=== PATIENT | female | born 1975 | race Caucasian/White ===

== ENCOUNTER → 2021-03-05 15:04 | Outpatient (CLI) | payer BC, SELFPAY ==
--- NOTE | 2021-03-05 15:12 | US_ITS ---
PROCEDURE: US THYROID CLINICAL INDICATION: THYROID NODULE COMPARISON: No exams were available for comparison FINDINGS: Right lobe: 3.8 x 1.2 x 1 cm Left lobe: 3.4 x 1 x 1 cm Isthmus: 2 mm Additional findings: Thyroid echogenicity and echotexture is normal. There is a tiny 2 mm cyst in the mid right thyroid lobe. There is a 4 mm complex nodule in the mid left thyroid lobe and a 5 millimeter minimally complex nodule in the left mid thyroid lobe. Repeat thyroid ultrasound in 6 months recommended for close follow-up. No other abnormality. IMPRESSION: A few small subcentimeter complex nodules in the left thyroid lobe and tiny subcentimeter cyst in the right thyroid lobe. Repeat thyroid ultrasound in 6 months recommended for close follow-up. Dictated by: Mo See MD 03/06/2021 09:27 Mo See MD in [place] 03/06/2021 09:27
== END ==
PROVIDERS: PCP Nurse Practitioner Family; Visit Provider Nurse Practitioner Family
DX: E04.1 Nontoxic single thyroid nodule (principal)
CPT/HCPCS: 76536

== ENCOUNTER → 2021-11-06 13:51 | Outpatient (CLI) | payer BC, SELFPAY ==
--- NOTE | 2021-11-06 13:56 | US_ITS ---
FINAL REPORT CLINICAL HISTORY: THYROID NODULE COMPARISON: March 05, 2021 FINDINGS: THYROID ULTRASOUND The right lobe of the thyroid measures 3.5 x 1.2 x 0.9 cm. The left lobe of the thyroid measures 3.3 x 1.1 x 1.0 cm. The parenchyma shows normal echogenicity. There is a 4 x 4 x 3 mm nodule in the right lobe of the thyroid that is solid and hypoechoic consistent with a TI-RADS 4. In the left lobe of the thyroid is a 5 x 4 x 2 mm solid hypoechoic nodule consistent with a TI-RADS 4. Also in the left lobe is a 6 x 6 x 2 mm solid hypoechoic TI-RADS 4 nodule. There is visually no significant change from the prior exam. IMPRESSION: Persistent small nodules bilaterally. Consider additional follow-up in 12 months. Reviewed, Interpreted and Dictated by Jett Paul III, MD Transcribed by Pillo Eckert Authenticated by Jett Paul III, MD on 11/06/2021 03:39:28 PM [facility]
== END ==
PROVIDERS: PCP Nurse Practitioner Family; Visit Provider Nurse Practitioner Family
DX: E04.1 Nontoxic single thyroid nodule (principal)
CPT/HCPCS: 76536

== ENCOUNTER → 2022-06-05 13:21 | Outpatient (CLI) | payer BC, SELFPAY ==
--- NOTE | 2022-06-05 13:21 | MM_ITS ---
PROCEDURE INFORMATION: Exam: MG Bilateral Screening 3D Mammography Exam date and time: 06/05/2022 1:20 PM Age: 47 years old Clinical indication: Screening examination. Her mother had breast cancer at age 67 and maternal aunts had breast cancer. TECHNIQUE: Imaging protocol: Bilateral Screening tomosynthesis and 2D mammography including computer-aided detection (CAD) when performed. COMPARISON: No relevant prior studies available. If prior mammograms are provided, I am happy to add an addendum. FINDINGS: MAMMOGRAPHY: Breast composition: There are scattered areas of fibroglandular density. Mass: None. Architectural distortion: None. Calcifications: No suspicious calcifications. Asymmetric density: None. Skin thickening: None. Axillary adenopathy: None. IMPRESSION: No mammographic evidence of malignancy. Annual screening is recommended unless otherwise clinically indicated. ASSESSMENT: BI-RADS Category 1: Negative
== END ==
PROVIDERS: PCP Nurse Practitioner Family; Visit Provider Obstetrics & Gynecology
DX: Z12.31 Encounter for screening mammogram for malignant neoplasm of breast (principal)
CPT/HCPCS: 77063; 77067

== ENCOUNTER → 2023-08-12 07:58 | Outpatient (CLI) | payer BC, SELFPAY ==
--- NOTE | 2023-08-12 07:58 | MM_ITS ---
PROCEDURE INFORMATION: Exam: MG Bilateral Screening 3D Mammography Exam date and time: 08/12/2023 7:53 AM Age: 48 years old Clinical indication: Screening examination TECHNIQUE: Imaging protocol: Bilateral Screening tomosynthesis and 2D mammography including computer-aided detection (CAD) when performed. COMPARISON: MG MM DIG SCREENING MAMM BI W/CAD 06/05/2022 1:21 PM FINDINGS: MAMMOGRAPHY: Breast composition: There are scattered areas of fibroglandular density. Mass: None. Architectural distortion: None. Calcifications: No suspicious calcifications. Asymmetric density: None. Skin thickening: None. Axillary adenopathy: None. IMPRESSION: No mammographic evidence of malignancy. Annual screening is recommended unless otherwise clinically indicated. ASSESSMENT: BI-RADS Category 1: Negative
== END ==
PROVIDERS: PCP Nurse Practitioner Family; Visit Provider Obstetrics & Gynecology
DX: Z12.31 Encounter for screening mammogram for malignant neoplasm of breast (principal)
CPT/HCPCS: 77063; 77067

== ENCOUNTER 2023-12-30 10:21 | Outpatient (CLI) | payer BC, SELFPAY ==
--- NOTE | 2023-12-30 10:26 | US_ITS ---
FINAL REPORT CLINICAL HISTORY: UPPER ABD PAIN,N/D COMPARISON: None FINDINGS: Sonographic images of the right upper quadrant were obtained. The pancreas is partially obscured.The liver has an unremarkable appearance. There are polyps versus tumefactive sludge present in the gallbladder. There is no evidence of biliary ductal dilatation.The common duct measures 5 mm. Limited images of the right kidney are unremarkable. IMPRESSION: Polyps versus tumefactive sludge present in the gallbladder, follow-up may be helpful. No evidence of biliary ductal dilatation. Reviewed, Interpreted and Dictated by Jett Paul III, MD Transcribed by Perla Macedo Authenticated and [facility]
== END 2023-12-30 23:59 | disposition home or self-care (01) ==
LOC: RAD 10:22
PROVIDERS: PCP Nurse Practitioner; Visit Provider Nurse Practitioner
DX: R10.10 Upper abdominal pain, unspecified (principal); R11.0 Nausea; R19.7 Diarrhea, unspecified
CPT/HCPCS: 76705

== ENCOUNTER 2024-11-14 08:00 | Outpatient (CLI) | payer BC, SELFPAY ==
--- NOTE | 2024-11-14 08:05 | MM_ITS ---
PROCEDURE INFORMATION: Exam: MG Bilateral Screening 3D Mammography Exam date and time: 11/14/2024 8:12 AM Age: 49 years old Clinical indication: Screening examination TECHNIQUE: Imaging protocol: Bilateral Screening tomosynthesis and 2D mammography including computer-aided detection (CAD) when performed. COMPARISON: 1. MG MM DIG SCREENING MAMM BI W/CAD 08/12/2023 7:53 AM 2. MG MM DIG SCREENING MAMM BI W/CAD 06/05/2022 1:21 PM FINDINGS: MAMMOGRAPHY: Breast composition: There are scattered areas of fibroglandular density. Mass: None. Architectural distortion: None. Calcifications: No suspicious calcifications. Asymmetric density: None. Skin thickening: None. Axillary adenopathy: None. IMPRESSION: No mammographic evidence of malignancy. Annual screening is recommended unless otherwise clinically indicated. ASSESSMENT: BI-RADS Category 1: Negative.
== END 2024-11-14 23:59 | disposition home or self-care (01) ==
LOC: RAD 08:02
PROVIDERS: PCP Nurse Practitioner; Visit Provider Nurse Practitioner
DX: Z12.31 Encounter for screening mammogram for malignant neoplasm of breast (principal)
CPT/HCPCS: 77063; 77067

== ENCOUNTER 2025-03-06 06:59 | Day surgery (SDC) | payer BC, SELFPAY ==
[2025-03-03 10:02] VITALS: BMI 31.1
[2025-03-06 07:40] VITALS: BP 113/63; PULSE 66; RESP 18; TEMP 36.1; O2SAT 99; BMI 31.1
[2025-03-06] MEDS: LACTATED RINGERS 1000ML 1,000 ML 50 ML IV (07:50)
--- NOTE | 2025-03-06 07:59 | EXP.ANES.CKL ---
[facility] Disclaimer: The information contained in this section may have been updated after the patient was seen, as this information can be updated by other users. Medical History Postmenopausal atrophic vaginitis Menopausal syndrome (hot flashes) Family history of breast cancer in first degree relative Surgical History Hx of tubal ligation Family History Mother Cancer Breast Cancer Social History Smoking Status: Never smoker alcohol intake: never substance use type: denies use current occupational status: employed Travel in the last 8 weeks?: None [facility] Anesthesia Checklist Patient Identification Patient Identification: Verbal (Name & ) Structural Data Admitted From: Home Planned Operative Procedure/s: colonoscopy NPO Status Verified Time NPO: 00:00 Airway Assessment Mallampati Score:: Class II C-Spine Mobility Assessed: Yes TMJ Mobility Assessed: Yes Dentition: Good Dentition Neurological Assessment Level of Consciousness: Awake, Alert and Appropriate Anesthesia Plan Anesthesia Risk discussed: Yes Anesthesia Plan: Verified ASA Class: I Anesthesia Type: MAC
--- NOTE | 2025-03-06 08:24 | EXP.HP ---
History of Present Illness *Admission Date: 03/06/25 *Reason for visit:: Screening for colon cancer *History of present illness: Mrs. George is a 50-year-old female who is here for initial screening for colon cancer. The examination is deemed medically necessary for screening colonoscopy. The patient has been seen, interviewed and examined prior to the procedure by both myself and the anesthesia provider. [facility] Disclaimer: The information contained in this section may have been updated after the patient was seen, as this information can be updated by other users. Medical History (Updated 03/06/25 @ 08:32 by Leandro Tucker II, MD) Postmenopausal atrophic vaginitis Menopausal syndrome (hot flashes) Family history of breast cancer in first degree relative Surgical History Hx of tubal ligation Family History Mother Cancer Breast Cancer Social History (Updated 03/06/25 @ 08:00 by Henok Sommers CRNA) Smoking Status: Never smoker alcohol intake: never substance use type: denies use current occupational status: employed Travel in the last 8 weeks?: None Have you lived/traveled outside [place] in past 30 days?: No Contact w/someone who lives/traveled outside US past 30 days?: No Exposure to someone with infectious disease in past 14 days?: No Do you have a fever (greater than 100.4 F or 38 C)?: No Have you tested positive for COVID-19?: No Exposed to someone with COVID-19 in past 14 days?: No Do you have a sore throat?: No Do you have a cough?: No Do you have any weakness?: No Are you experiencing any nausea/vomitting?: No Do you have any diarrhea?: No Are you experiencing any unusual bleeding?: No Do you have any muscle aches/pain?: No Do you have any abdominal pain?: No Are you experiencing loss of taste or smell?: No Review of Systems Review of Systems Review of systems (narrative): Negative *Cardiovascular Comments: Negative *Gastrointestinal Comments: Negative *Genitourinary Comments: Negative *Musculoskeletal Comments: Negative *Neurologic Comments: Negative Meds Home Medications and Allergies Home Medications ?Medication ?Instructions ?Recorded ?Confirmed ?Type cholecalciferol (vitamin D3) 1,250 1,250 mcg PO WEEKLY 11/14/24 03/06/25 History mcg (50,000 unit) capsule levothyroxine 112 mcg tablet 112 mcg PO DAILY 11/14/24 03/06/25 History sodium,potassium,mag sulfates 17.5 See Rx Instructions PO .COMPLEX 12/06/24 03/06/25 Rx gram-3.13 gram-1.6 gram oral soln #354 mL (Suprep Bowel Prep Kit) New Prescriptions to Start Prescriptions: Allergies Allergy/AdvReac Type Severity Reaction Status Date / Time Penicillins Allergy Mild Rash Verified 03/03/25 09:55 Exam Data for Last 24 hours Vital signs and Labs for Last 24 Hours: Temp Pulse Resp BP Pulse Ox O2 Del Method 97.0 F L 66 18 113/63 99 Room Air 03/06/25 07:40 03/06/25 07:40 03/06/25 07:40 03/06/25 07:40 03/06/25 07:40 03/06/25 07:40 I & O for Last 24 hours: Intake & Output 03/03/25 03/04/25 03/05/25 03/06/25 23:59 23:59 23:59 23:59 Weight 170 lb 170 lb *Routine HEENT Exam Head: Present normocephalic Eye: Present EOMI and PERRL ENT: Present mucous membranes moist *Routine Neck Exam Neck: Present supple *Routine Respiratory Exam Respiratory: Present CTA bilaterally *Routine Cardiovascular Exam Cardiovascular: Present RRR *Routine Abdominal Exam Abdominal: Present soft and normoactive bowel sounds; Absent tenderness *Routine Rectal Exam Rectal:: deferred *Routine Genitalia Exam Genitalia:: deferred *Routine Extremities Exam Extremities: Absent cyanosis, clubbing or edema *Routine Skin Exam Skin: Present warm; Absent rash *Routine Neurological Exam Neurological: Present alert and oriented X3 Assessment and Plan *Assessment and plan (1) Screening for colon cancer: Status: Acute Category: Medical Code(s): Z12.11 - Encounter for screening for malignant neoplasm of colon Plan A/P: 1. Screening for colon cancer is the preprocedural diagnosis. The patient will be anesthetized/sedated using MAC sedation. The patient has been seen and examined. Cardiac and lung assessment prior to the examination is stable. Proceed with planned initial screening colonoscopy.
--- NOTE | 2025-03-06 08:32 | HMH.PROCNOTE ---
[facility] Procedure Note Date: 03/06/25 Time: 08:49 Procedure Note:: Colonoscopy Procedure Report: Colonoscopy with cold snare polypectomy Endoscopist: Leandro Tucker II, MD Referring physician: Drea TREVIÑO Date of Procedure: March 06, 2025 Equipment: Olympus 190 variable stiffness pediatric colonoscope Sedation: MAC sedation Indication: Mrs. George is a 50-year-old female who is here for initial screening colonoscopy. She reports no abdominal pain, weight loss, change in her bowel habits or rectal bleeding. She reports no family history of colon cancer. Procedure: Prior to the procedure, a history and physical exam was performed, and patient's medications and allergies were reviewed. The risks, benefits and alternatives of the sedation and procedure were discussed with the patient. All questions were answered and informed consent was obtained. The patient was brought to the procedure room. Patient identification and proposed procedure were verified by the physician and the nurse. The patient was placed in a left lateral decubitus position and the scope was passed under direct vision. Throughout the procedure, the patient's blood pressure, pulse, and oxygen saturations were monitored continuously. The colonoscopy was accomplished without difficulty. The patient tolerated the procedure well. Findings: On digital rectal examination there was normal rectal tone. There were no external hemorrhoids. The colonoscope was introduced through the anal canal to the rectum and advanced to the cecum. The ileocecal valve and appendiceal orifice were identified. The scope was advanced a short distance into the ileum which appeared grossly normal. The scope was then withdrawn into the colon. There was a single 5 mm polyp in the descending colon removed via cold snare polypectomy. The remaining cecum, ascending, transverse, descending, sigmoid and rectum were grossly normal. There were no mucosal abnormalities identified. Upon retroflexion within the rectum there were grade 1 internal hemorrhoids. The preparation was excellent throughout with Narberth Preparation Score of 9. The cecal time was 12 minutes. Impression: 1. Diminutive descending colon polyp (5 mm) Plan: I will follow-up the polyp histology and recommend repeat surveillance colonoscopy again in 7 years based upon the pathology.
[2025-03-06 08:55] VITALS: BP 103/67; PULSE 76; RESP 16; TEMP 36.1; O2SAT 98
[2025-03-06 09:05] VITALS: BP 113/71; PULSE 82; RESP 16; O2SAT 99
[2025-03-06 09:12] VITALS: BP 114/74; PULSE 74; RESP 16; O2SAT 99
[2025-03-06 09:25] VITALS: BP 120/71; PULSE 76; RESP 16; O2SAT 99
== END 2025-03-06 09:26 | disposition home or self-care (01) ==
PROVIDERS: PCP Nurse Practitioner; Visit Provider Internal Medicine Gastroenterology
PROC: 0DJD8ZZ Inspection of Lower Intestinal Tract, Via Natural or Artificial Opening Endoscopic (ICD-10-PCS; CPT 45378; principal; 2025-03-06 08:30)
DX: Z12.11 Encounter for screening for malignant neoplasm of colon (principal); D12.4 Benign neoplasm of descending colon; Z88.0 Allergy status to penicillin; Z80.3 Family history of malignant neoplasm of breast; Z79.899 Other long term (current) drug therapy; Z98.51 Tubal ligation status; Z79.890 Hormone replacement therapy
CPT/HCPCS: 45385; J2003; J2704; J7120